=== PATIENT | male | born 2005 | race Caucasian/White ===

== ENCOUNTER 2025-01-19 22:32 | Emergency (ER) | payer OTHER, SELFPAY ==
--- OUTSIDE RECORDS SUMMARY | 2025-01-19 22:34 | XMS_ITS | Clinical Summary ---
Author Organization [facility] Address [address] [place] [id number] Care Team Providers Care Construction Framer Name Role Phone Fatou Herron MD Primary Care Provider Allergies Active Allergy Reactions Criticality Noted Date Comments Amoxicillin Hives 06/11/2024 Medications estradioL 2 mg tabletIndication s:Gender dysphoria Take 1 Tablet (2 mg) by mouth once daily. 90 Tablet 1 10/26/2024 Active spironolactone 50 mg tabletIndication s:Gender dysphoria Take 1 Tablet (50 mg) by mouth once daily. 90 Tablet 1 10/26/2024 Active Active Problems No known active problems Encounters Date Type Department Care Team Description 10/26/2024 9:10 AM CDT Office Visit [place] [id number] [address] Jeet Mcdaniel MD Medication Management (Discuss hormone replacement therapy ) 10/26/2024 Travel 10/22/2024 Travel from Last 3 Months Immunizations Immunization Administration Dates Next Due DTaP 03/19/2014, 9,03/19/2004,01/22,2003 DTaP-HIB (TriHIBIT) 12/24/2004 HIB-HepB (Comvax) 01/23/2004,2003 HPV 9 (Gardasil 9) 01/24/2019,12/13/2017 Hepatitis A (Peds) 09/26/2007,10/04/2006 Hepatitis B (Peds) 06/23/2004 INFLUENZA, IIV3 PF (AGE >= 6 MO) 05/02/2024 Inactivated Polio Vaccine 10/08/2008,,01/23/2004,11/17 Influenza, IIV3 (Age >=3 years) 05/30/20 08,05/09/2007,08/16/2006,06/11 Influenza, IIV4 05/04/2023,,07/10/2021,05/01 Influenza,LAIV4 Live Intrana leonora (Flumist) 06/09/2015 MMR 10/08/2008,09/24/2004 Meningococcal Vaccine (Menactra) 02/26/2021,04/2015 Pneumococcal conj 7-Valent (Prevnar 7) 0 12/24/2006,12/24/2004,03/19/2004,01/22,2003 Tdap 03/31/2023,12/10/2015 Typhoid (injectable) 06/09/2015 Varicella Vaccine 09/26/2007,09/24/2004 meningococcal B, Recombinant 03/31/2023,09/07/19 22 Family History Medical History Relation Name Comments Bipolar disorder Father Alcoholism Maternal Grandfather Asthma Mother Cancer-prostate Paternal Grandfather Melanoma Paternal Grandmother Relation Name Status Comments Father Alive Maternal Grandfather Mother Alive Paternal Grandfather Paternal Grandmother Social History Tobacco Use Types Packs/Day Years Used Date Smoking Tobacco: Never Smokeless Tobacco: Never Tobacco Cessation:Counseling Given: Not Answered Comments:09/2024 Alcohol Use Standard Drinks/Week Comments Not Currently 0 (1 standard drink = 0.6 oz pur e alcohol) 09/2024 PHQ-2 Answer Date Recorded PHQ-2 TOTAL SCORE 2 06/11/2024 Social Connections Answer Date Recorded Do you often feel lonely or isolated from those around you? 0 06/11/2024 Financial Resource Strain Answer Date R ecorded Difficulty of Paying Living Expenses 3 06/11/2024 Difficulty of Paying Living Expenses Not on file 06/11/2024 Food Insecurity Answer Date Recorded Do you worry your food will run out before you are able to buy more? 1 06/11/2024 Transportation Needs Answer Date Record ed Does lack of transportation keep you from medica l appointments? 1 06/11/2024 Does lack of transportation keep you from work, meetings or getting things that you need? 1 06/11/2024 Housing Stability Answer Date Recorded What is your housing situation today? 1 06/11/2024 Utilities Answer Date Recorded Do you have trouble paying f or utilities (for example, heat, electricity, water, phone)? 1 06/11/2024 Sex and Gender Information Value Date Recorded Sex Assigned at Male 02/09/2024 3:29 PM CDT Legal Sex Male 3:29 PM CDT Gender Identity non-binary 02/09/2024 3:29 PM CDT Sexual Orientation Queer 10/26/2024 9: 28 AM CDT Obstetrics History Last Filed Vital Signs Vital Sign Reading Time Taken Comments Blood Pressure 120/78 10/26/2024 9:11 AM CDT Pulse 85 10/26/2024 9:11 AM CDT Temperature - - Respiratory Rate - - Oxygen Saturation 100% 10/26/2024 9:11 AM CDT Inhaled Oxygen Concentration - - Weight 70.8 kg (156 lb) 10/26/2024 9:11 AM CDT Height 181.6 cm (5' 11.5) 10/26/2024 9:11 AM CD T Body Mass Index 21.45 10/26/2024 9:11 AM CDT Plan of Treatment Upcoming Encounters Date Type Department Care Team (Late st Contact Info) Description 01/25/2025 10:00 AM CDT Office Visit [facility] [address] [address] Jeet Mcdaniel MD [address] [address] Health Maintenance Due Date Last Done Comments Chlamydia for age 16-24 2019 Pap test for age 21-65 2024 Depression screening for age 12+ 06/11/2025 06/11/2024 BMI (ht and wt on same day) for age 18+ 10/26/2025 10/26/2024, 06/11/2024 Tetanus booster 03/31/2033 03/31/2023, 12/10/2015 Hepatitis B series for 19+ Completed 06/23, 01/23/2004, 2003 Pneumococcal series for age 6-49 Aged Out 12/24/2006, 12/24/2004, 03/19/2004, Additional history exists No longer eligible based on patient's age to complete this topic HPV series for age 9-26 Completed 01/24/2019, 12/13 HPV series for age 9-26 Completed 01/24/2019, 12/13 Meningococcal series for age 11-21 Completed 02/26/2021, 06/09/2015 Tdap Completed 03/31/2023, 12/10/2015 COVID-19 vaccine series Completed 05/02/20 24, 05/04/2023, 08/02/2022, Additional history exists Influenza Vaccine Completed 05/02/2024, , 08/02/2022, Additional history exists HIV for age 15-65 Completed 10/26/2024 Hepatitis C screening for age 18-79 Completed 10/26/2024 Procedures Procedure Name Priority Date/Time Associated Diagnosis Comments LIPID PANEL W REFLEX MEASURED LDL Routine 10/26/2024 9:45 AM CDT Gender dysphoria HEMOGLOBIN A1C Routine 10/26/2024 9:45 AM CDT Gender dysphoria BASIC METABOLIC PANEL Routine 10/26/2024 9:45 AM CDT Gender dysphoria HEPATIC FUNCTION PANEL Routine 10/26/2024 9:45 AM CDT Gender dysphoria TESTOSTERONE,TOTAL Routine 10/26/2024 9: 45 AM CDT Gender dysphoria CBC W PLT NO DIFF Routine 10/26/2024 9:4 5 AM CDT Gender dysphoria ANTI HIV 1/2 Routine 10/26/2024 9:45 AM CDT Screening for HIV (human immunodeficiency virus) ANTI HCV Routine 10/26/2024 9:45 AM CDT Need for hepatitis C screening test from Last 3 Months Results * HEMOGLOBIN A1C (10/26/2024 9:45 AM CDT) HEMOGLOBIN A1C 5.1 <5.7 % of total Hgb [facility] Comment: For the purpose of screening for the presence of diabetes: <5.7% Consistent with the absence of diabetes 5.7-6.4% Consistent with increased risk for diabetes (prediabetes) > or =6.5% Consistent with diabetes This assay result is consistent with a decreased risk of diabetes. Currently, no consensus exists regarding use of hemoglobin A1c for diagnosis of diabetes in children. According to [place] Diabetes Association (ADA) guidelines, hemoglobin A1c <7.0% represents optimal control in non- diabetic patients. Different metrics may apply to specific patient populations. Standards of Medical Care in Diabetes(ADA). Blood BLOOD SPECIMEN / Unknown 10/26/2024 9:45 AM CDT 10/26/2024 9:46 AM CDT us Jeet Mcdaniel MD CHEMISTRY Final Res ult [facility] [address] [place] [address], [facility] [address] [place] [address] * LIPID PANEL W REFLEX MEASURED LDL (10/26/2024 9:45 AM CDT) CHOLESTEROL, TOTAL 141 <200 mg/dL [facility] HDL CHOLESTEROL 55 > OR = 40 mg/dL [facility] TRIGLYCERIDES 43 <150 mg/dL [facility] LDL-CHOLESTEROL 74 mg/dL (calc) [facility] Comment: Reference range: <100 Desirable range <100 mg/dL for primary prevention; <70 mg/dL for patients with CHD or diabetic patients with > or = 2 CHD risk factors. LDL-C is now calculated using the Armando-Lyons calculation, which is a validated novel method providing better accuracy than the Friedewald equation in the estimation of LDL-C. Armando SS et al. CHAZ. 2013;310(19): 0270-3863 (http://education.Wellbe.Zbird/faq/YUZ132) CHOL/HDLC RATIO 2.6 <5.0 (calc) [facility] NON HDL CHOLESTEROL 86 <130 mg/dL (calc) [facility] [place] Comment: For patients with diabetes plus 1 major ASCVD risk factor, treating to a non-HDL-C goal of <100 mg/dL (LDL-C of <70 mg/dL) is considered a therapeutic option. Blood BLOOD SPECIMEN / Unknown 10/26/2024 9:45 AM CDT 10/26/2024 9:46 AM CDT Jeet Mcdaniel MD CHEMISTRY Final Res ult Performing Organization Address [facility] de Phone Number [facility] [address] [address], [facility] [address] * ANTI HCV (10/26/2024 9:45 AM CDT) HEPATITIS C ANTIBODY NON-REACTI VE NON-REACT KATHIE [facility] [place] Comment: HCV antibody was non-reactive. There is no laboratory evidence of HCV infection. In most cases, no further action is required. However, if recent HCV exposure is suspected, a test for HCV RNA (test code 39570) is suggested. For additional information please refer to http://education.[employer].Zbird/faq/BTT76b8 (This link is being provided for informational/ educational purposes only.) Blood BLOOD SPECIMEN / Unknown 10/26/2024 9:45 AM CDT 10/26/2024 9:46 AM CDT Jeet Mcdaniel MD SEND OUTS Final Res ult Performing Organization Address [facility] Co de Phone Number [facility] [place] [address] [place] [address], [place] [phone] [facility] [place] [address] [place] [address] * CBC W PLT NO DIFF (10/26/2024 9:45 AM CDT) [facility] WHITE BLOOD CELL COUNT 5.7 3.8 - 10.8 Thousand/u L [facility] RED BLOOD CELL COUNT 4.85 4.20 - 5.80 Million/uL [facility] HEMOGLOBIN 15.2 13.2 - 17.1 g/dL [facility] HEMATOCRIT 45.6 38.5 - 50.0 % [facility] MCV 94.0 80.0 - 100.0 fL [facility] MCH 31.3 27.0 - 33.0 pg [facility] MCHC 33.3 32.0 - 36.0 g/dL [facility] Comment: For adults, a slight decrease in the calculated MCHC value (in the range of 30 to 32 g/dL) is most likely not clinically significant; however, it should be interpreted with caution in correlation with other red cell parameters and the patient's clinical condition. RDW 12.3 11.0 - 15.0 % [facility] PLATELET COUNT 267 140 - 400 Thousand/u L [facility] MPV 11.3 7.5 - 12.5 fL [facility] Blood BLOOD SPECIMEN / Unknown 10/26/2024 9:45 AM CDT 10/26/2024 9:46 AM CDT us Jeet Mcdaniel MD HEMATOLOGY Final Res ult [facility] [address] [place] [address], [place] [phone] [facility] [place] [address] [place] [address] * ANTI HIV 1/2 [51498.0] (10/26/2024 9:45 AM CDT) HIV AG/AB, 4TH GEN NON-REACT KATHIE NON-REACT KATHIE [facility] Comment: HIV-1 antigen and HIV-1/HIV-2 antibodies were not detected. There is no laboratory evidence of HIV infection. PLEASE NOTE: This information has been disclosed to you from records whose confidentiality may be protected by state law. If your state requires such protection, then the state law prohibits you from making any further disclosure of the information without the specific written consent of the person to whom it pertains, or as otherwise permitted by law. A general authorization for the release of medical or other information is NOT sufficient for this purpose. For additional information please refer to http://Sprout.Ongo/faq/GUU867 (This link is being provided for informational/ educational purposes only.) The performance of this assay has not been clinically validated in patients less than 2 years old. Blood BLOOD SPECIMEN / Unknown 10/26/2024 9:45 AM CDT 10/26/2024 9:46 AM CDT Jeet Mcdaniel MD SEND OUTS Final Res ult [facility] [address] [place] [address], [facility] [address] [place] [address] * TESTOSTERONE,TOTAL (10/26/2024 9:45 AM CDT) Pathologist [facility] TESTOSTERONE, TOTAL, [place] 494 250 - 1,100 ng/dL [facility] Comment: For additional information, please refer to https://Sprout.Ongo/faq/TotalTestosteroneLCMSMS (This link is being provided for informational/educational purposes only.) (Note) This test was developed and its analytical performance characteristics have been determined by [facility]. It has not been cleared or approved by the FDA. This assay has been validated pursuant to the CLIA regulations and is used for clinical purposes. [facility] [address] [facility] [place] [address],[address] [place] [address] Tea Peace MD, PhD Blood BLOOD SPECIMEN / Unknown 10/26/2024 9:45 AM CDT 10/26/2024 9:46 AM CDT Jeet Mcdaniel MD CHEMISTRY Final Res ult [facility] [address] [place] [address], [facility] [address] [place] [address], [address] [place] [phone] * HEPATIC FUNCTION PANEL (10/26/2024 9:45 AM CDT) PROTEIN, TOTAL 7.5 6.1 - 8.1 g/dL [facility] ALBUMIN 5.0 3.6 - 5.1 g/dL [facility] GLOBULIN 2.5 1.9 - 3.7 g/dL (calc) [facility] ALBUMIN/GLOBULIN RATIO 2.0 1.0 - 2.5 (calc) [facility] BILIRUBIN, TOTAL 0.5 0.2 - 1.2 mg/dL [facility] BILIRUBIN, DIRECT 0.1 < OR = 0.2 mg/dL [facility] BILIRUBIN, INDIRECT 0.4 0.2 - 1.2 mg/dL (calc) [facility] ALKALINE PHOSPHATASE 63 36 - 130 U/L [facility] AST 19 10 - 40 U/L [facility] ALT 20 9 - 46 U/L [facility] Blood BLOOD SPECIMEN / Unknown 10/26/2024 9:45 AM CDT 10/26/2024 9:46 AM CDT Jeet Mcdaniel MD CHEMISTRY Final Res ult [facility] [address] [place] [address], [facility] [address] [place] [address] * BASIC METABOLIC PANEL (10/26/2024 9:45 AM CDT) GLUCOSE 95 65 - 99 mg/dL [facility] Comment: Fasting reference interval UREA NITROGEN (BUN) 11 7 - 25 mg/dL [facility] CREATININE 0.95 0.60 - 1.24 mg/dL [facility] EGFR 117 > OR = 60 mL/min/1. 73m2 [facility] BUN/CREATININE RATIO SEE NOTE: 6 - 22 (calc) [facility] Comment: Not Reported: BUN and Creatinine are within reference range. SODIUM 142 135 - 146 mmol/L [facility] POTASSIUM 4.6 3.5 - 5.3 mmol/L [facility] CHLORIDE 105 98 - 110 mmol/L [facility] CARBON DIOXIDE 26 20 - 32 mmol/L [facility] ELECTROLYTE BALANCE 11 7 - 17 mmol/L (calc) [facility] CALCIUM 10.1 8.6 - 10.3 mg/dL [facility] Blood BLOOD SPECIMEN / Unknown 10/26/2024 9:45 AM CDT 10/26/2024 9:46 AM CDT us Jeet Mcdaniel MD CHEMISTRY Final Res ult [facility] [address] [place] [address], [facility] [address] [place] [address] from Last 3 Months Insurance KOBI ARIAS [id number] Care Teams Construction Framer Relationship Specialty Start Date End Date Fatou Herron MD [address] [place] [address] PCP - General Internal Medicine 10/05/24
[2025-01-19 22:41] VITALS: BP 142/85; PULSE 75; RESP 18; TEMP 36.7; O2SAT 98; BMI 24.4
[2025-01-19 23:12] LABS: Strep A DNA Probe* NOT DETECTED (Not Detectd)
--- NOTE | 2025-01-19 23:18 | ED.GENADULT ---
HPI - General Adult General Time Seen by Provider: 23:18 Date Seen: 01/19/25 Chief complaint: Sore Throat Stated complaint: Throat/chest tightness Time Seen by Provider: 01/19/25 22:40 Source: patient and RN notes reviewed Mode of arrival: ambulatory Limitations: no limitations History of Present Illness HPI narrative: Tonio is a 19-year-old male to female patient ambulatory into the ED with concerns of chest tightness, some shortness of breath. About 6-8 hours ago, she started to notice some chest tightness, could feel it in her chest when moving. There really has not been any cough but noticed wheezing. She felt short of breath with that. She felt a sore throat develop, more at the base of the throat, does hurt with swallowing. No difficulty breathing. Since being here in the ER, some of these respiratory symptoms have abated. Tonio notes no history of asthma. Does note with high humidity and heat will get tired and fatigued. No fevers, no nausea vomiting, no diarrhea. 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 Tonio is taking estrogen and spironolactone. Tonio denies any chronic health issues. Related Data Home Medications ?Medication ?Instructions ?Recorded ?Confirmed estradiol 2 mg tablet 2 mg PO DAILY 01/19/25 01/19/25 spironolactone 50 mg tablet 50 mg PO DAILY 01/19/25 01/19/25 Allergies Allergy/AdvReac Type Severity Reaction Status Date / Time amoxicillin Allergy Mild Hives Verified 01/19/25 22:44 Penicillins Allergy Verified 01/19/25 22:44 Review of Systems Status of ROS: Reports: 6 or more systems reviewed and unremarkable except as noted in History and below [facility] Social History Smoking Status: Never smoker Second hand tobacco smoke exposure: No How often do you have a drink containing alcohol: never AUDIT-C Alcohol total score: 0 Non-prescribed substance use: denies use Exam Const: Vital Signs, click to edit/add: Vital Signs - 24 hr 01/19/25 22:41 01/19/25 23:25 Temperature 98.0 F Pulse Rate [Right Pulse Oximeter] 75 Respiratory Rate 18 Blood Pressure [Ri ght Upper Arm] 142/85 H Pulse Oximetry 98 98 Oxygen Delivery Me thod Room Air Tonio is a 19-year-old male to female transgender patient seen in exam room 4. She is alert, interactive, no apparent distress. Sitting up in the chair, breathing easily on room air. Speech is normal. Pupils equal round reactive, sclerae clear. Oropharynx with normal mucosa, no exudates or erythema, no really visible tonsillar tissue, good oral airway. Neck is supple, does have some anterior cervical adenopathy that is not fixed or matted, she does state they feel tender. No thyromegaly masses or nodules. Lungs are clear, good air entry, no wheezing or crackles. CV regular rate and rhythm, no murmur, normal S1-S2, no S3-S4. Documenting provider has reviewed patient's vital signs: yes Course Course ED Course: Nursing staff had collected a strep on arrival, this is negative. Tonio's EKG is reviewed and is reassuring. Given mercy willard is on estrogen, do feel we should look at D-dimer and troponin. This could be viral etiology. Could be early atypical pneumonia. Will look at a chest x-ray. She currently is feeling better. I do suppose there could be some environmental exposure with the heat. Will look at some basic labs and continue to monitor Tonio. CBC will help us decide if there is potentially any support for early bacterial tonsillitis. Do not feel that Tonio needs any soft tissue neck imaging at this time based on clinical exam. Airway is patent, not concerned about any acute airway problem at this time. Reevaluation(s) Time of Reevaluation #1: 00:40 Reevaluation #1: Have re-evaluated mercy willard, reviewed that her labs are all reassuring. We did review that the chest x-ray showing no acute pathology but there is hyperinflation. Her mom is here now, there is no history of asthma or excessive coughing with respiratory conditions as a child. Mom herself has been diagnosed with adult onset asthma and some environmental allergens per report. Partner really is describing almost an asthma like situation, she is feeling better with her breathing since being in here. We discussed a course of prednisone, trying a rescue inhaler. Mom will show her how to use the albuterol, we will try to come up with a spacer. If these symptoms are ongoing, she does find relief with albuterol, needs to talk to her primary care provider about being tested for asthma. Will have nursing staff see if they can find a spacer. Medications provided from [facility]. Vital Signs Vital signs: Initial Vital Signs Respiratory Effort Normal, Spontaneous, Non-Labored 01/19/25 22:39 Respiratory Depth Normal 01/19/25 22:39 Respiratory Pattern Normal 01/19/25 22:39 Vital Signs Temperature 98.0 F 01/19/25 22:41 Pulse Rate 75 01/19/25 22:41 Respiratory Rate 18 01/19/25 22:41 Blood Pressure 142/85 H 01/19/25 22:41 Pulse Oximetry 98 01/19/25 22:41 Oxygen Delivery Method Room Air 01/19/25 22:41 Temperature 98.0 F 01/19/25 22:41 Pulse Rate 75 01/19/25 22:41 Respiratory Rate 18 01/19/25 22:41 Blood Pressure 142/85 H 01/19/25 22:41 Pulse Oximetry 98 01/19/25 23:25 Oxygen Delivery Method Room Air 01/19/25 22:41 Medical Decision Making Lab Data Lab results reviewed: Yes I reviewed the patient's lab results Labs: Lab Results 01/19/25 01/19/25 Range/Units 22:43 23:25 WBC 10.61 (4.50-11.00) K/uL RBC 4.57 (4.30-5.90) m/uL Hgb 14.2 (13.5-17.5) gm/dL Hct 41.0 (37.0-53.0) % MCV 90 (80-100) fL MCH 31 (26-34) pg MCHC 35 (32-36) gm/dL RDW Coeff of Juve 11.7 (11.5-15.5) % Plt Count 276 (140-440) K/uL Neut % (Auto) 63.2 (42.0-72.0) % Lymph % (Auto) 27.2 (20-44) % Delta % (Auto) 7.3 (0.0-11.0) % Eos % (Auto) 1.2 (0.0-7.0) % Baso % (Auto) 0.3 (0.0-3.0) % Neut # (Auto) 6.70 (1.7-7.0) K/uL Lymph # (Auto) 2.89 (0.90-2.90) K/uL Delta # (Auto) 0.80 (0.00-0.90) K/UL Eos # (Auto) 0.13 (0.00-0.50) K/uL Baso # (Auto) 0.03 (0.00-0.30) K/uL Abs Immat Gran (auto) 0.09 (0.00-0.30) K/uL Imm/Tot Granulo (auto) 0.8 % D-Dimer Quant (PE/DVT) 0.05 (0.00-0.50) ug/ml Sodium 137 (135-149) mmol/L Potassium 4.0 (3.6-5.1) mmol/L Chloride 100 (96-114) mmol/L Carbon Dioxide 26 (20-32) mmol/L Anion Gap 11 (7-15) mEq/L BUN 17 (5-24) mg/dL Creatinine 1.0 (0.5-1.5) mg/dL Estimated Creat Clear 120.65 Estimated GFR 110 ml/min Glucose 102 (60-115) mg/dL Calcium 10.0 (8.4-10.6) mg/dL C-Reactive Protein < 0.5 L (0.5-1.0) mg/dL Group A Strep DNA NOT DETECTED (Not Detectd) POC Troponin I 0.00 L (0.01-0.04) ng/ml Imaging Data Chest x-ray: Attestation: I have reviewed the pertinent imaging results. Radiologist's impression: Patient: TONIO BIRMINGHAM Facility:?[facility] Patient ID:?[id number] Site Patient ID:?[id number]. Site :?[id number] Study:?XRay-Chest PCXR-01/19/2025 11:43:22 PM Ordering Physician:?Lisa Gomez Final Report: Indication: Chest tightness, wheezing Technique: Single view of the chest Comparison: None Findings/Impression: Hyperexpanded lungs, nonspecific but could be seen with acute asthma exacerbation in the appropriate clinical setting. No organized consolidation appreciated. Dictated by Brien Ramirez MD @ 01/19/2025 11:45:07 PM (Electronic Signature) ECG Data Attestation: I personally reviewed and interpreted this ECG as follows: (Normal sinus rhythm, 83 beats per minute. No acute ischemic change or infarct noted.) Discharge Plan Discharge Clinical Impression: Breathing difficulty Patient Disposition: Home, Self-Care Condition: Stable Instructions: Reactive Airways Disease (ED), Wheezing (ED) Additional Instructions: Can try the albuterol with a spacer, 2 puffs every 4 hours as needed for coughing or wheezing. Have also given a prescription for prednisone 20 mg twice a day for 5 days, take with food. I do think that you can start this, may help any component of inflammation that may be exacerbating your breathing symptoms. Keep your follow-up with your primary care provider next week, discuss this visit. May need to consider testing for asthma if you have ongoing symptoms down the road. Activity Level: Activity as Tolerated Prescriptions: No Action estradiol 2 mg tablet 2 mg PO DAILY spironolactone 50 mg tablet 50 mg PO DAILY Follow Up/Referrals: Provider,Not a Local [Primary Care Provider, Family Practice] Stand Alone Forms: Satago Info Instructions
[2025-01-19 23:25] VITALS: O2SAT 98
--- NOTE | 2025-01-19 23:25 | CRLHL7_ITS ---
For Patients: As a result of the Century Cures Act, medical imaging exams and procedure reports are released immediately into your electronic medical record. You may view this report before your referring provider. If you have questions, please contact your health care provider. Indication: Chest tightness, wheezing Technique: Single view of the chest Comparison: None Findings/Impression: Hyperexpanded lungs, nonspecific but could be seen with acute asthma exacerbation in the appropriate clinical setting. No organized consolidation appreciated. Dictated by Brien Ramirez MD @ 01/19/2025 11:45:07 PM (Electronically Signed)
[2025-01-19 23:40] LABS: Basophils Absolute Auto 0.03 K/uL (0.00-0.30); Basophils Percent Auto 0.3 % (0.0-3.0); Eosinophils Absolute Auto 0.13 K/uL (0.00-0.50); Eosinophils Percent Auto 1.2 % (0.0-7.0); Hemoglobin* 14.2 gm/dL (13.5-17.5); Immature Granulocytes Abs Auto 0.09 K/uL (0.00-0.30); Immature Granulocytes Pct Auto 0.8 %; Lymphocytes Absolute Auto 2.89 K/uL (0.90-2.90); Lymphocytes Percent Auto 27.2 % (20-44); Mean Corpuscular HGB Conc 35 gm/dL (32-36); Mean Corpuscular Hemoglobin 31 pg (26-34); Mean Corpuscular Volume 90 fL (80-100); Monocytes Percent Auto 7.3 % (0.0-11.0); Neutrophils Percent Auto 63.2 % (42.0-72.0); Platelet Count* 276 K/uL (140-440); RDW Coefficient of Variation % 11.7 % (11.5-15.5); Red Blood Count 4.57 m/uL (4.30-5.90); White Blood Count* 10.61 K/uL (4.50-11.00)
[2025-01-19 23:41] LABS: Slide Review Reflex No
[2025-01-19 23:53] LABS: Chloride* 100 mmol/L (96-114); Sodium* 137 mmol/L (135-149)
[2025-01-19 23:57] LABS: Anion Gap 11 mEq/L (7-15); Blood Urea Nitrogen* 17 mg/dL (5-24); Carbon Dioxide* 26 mmol/L (20-32); Est. Creatinine Clearance* 120.65; Estimated Glomerular Filt Rate 110 ml/min; Glucose* 102 mg/dL (60-115)
[2025-01-20 00:01] LABS: C Reactive Protein* < 0.5 mg/dL (0.5-1.0)
[2025-01-20 00:02] LABS: D Dimer Quantitative* 0.05 ug/ml (0.00-0.50)
[2025-01-20 00:51] VITALS: BP 132/74; PULSE 70; RESP 18; TEMP 36.7; O2SAT 98
[2025-01-20 00:52] VITALS: BP 132/74; PULSE 70; RESP 18; TEMP 36.7
== END 2025-01-20 00:52 | disposition home or self-care (01) ==
PROVIDERS: Emergency Provider Family Medicine
DX: R07.9 Chest pain, unspecified (principal); J02.9 Acute pharyngitis, unspecified; R06.02 Shortness of breath
CPT/HCPCS: 36415; 71045; 80048; 84484; 85025; 85379; 86140; 87651; 93005; 94761; 99284; 99285